=== PATIENT | male | born 1975 | race Caucasian/White ===

== ENCOUNTER 2018-01-19 01:39 | Emergency (ER) | END 2018-01-19 03:19 | disposition left against medical advice (07) ==

== ENCOUNTER 2018-01-24 00:41 | Emergency (ER) | END 2018-01-24 06:53 | disposition left against medical advice (07) ==

== ENCOUNTER 2018-03-22 22:58 | Emergency (ER) | END 2018-03-22 23:19 | disposition left against medical advice (07) ==

== ENCOUNTER 2018-04-13 17:35 | Emergency (ER) | END 2018-04-13 20:00 | disposition left against medical advice (07) ==

== ENCOUNTER 2018-07-12 02:27 | Emergency (ER) | payer OTHER ==
[~2018-07-12] VITALS: Ht 160 cm; Wt 118.2 kg
[2018-07-12 02:33] VITALS: BP 139/88; PULSE 78; RESP 18; Ht 160 cm; Wt 118.2 kg
--- NOTE | 2018-07-12 03:34 | ERD ---
ER Documentation Chief Complaint Chief Complaint CAN ALFONSO,from home,chest pressure pain radiating to L arm,resolved per pt HPI This is a 43-year-old male with a past medical history of hypertension, obesity, daily tobacco use, coronary artery disease status post CABG who is presenting with a transient episode of mid substernal nonexertional pressure-like moderate chest pain radiating into the left arm. It was not associated with lighthead edness or dizziness or shortness of breath or nausea or vomiting or diaphoresis. An ambulance was called. The patient was given aspirin and nitro prior to arrival with complete resolution of his pain. Now that the patient's pain is resolved, he would like to leave. The patient denies feeling sick recently. The patient denies fever or chills. The patient has had no headache or vision changes. The patient does not endorse neck or back pain. The patient denies abdominal pain. The patient denies changes to bowel movements or urination. The patient has had no focal deficits. The patient has had no weakness or numbness or tingling to the face or extremities. ROS All systems reviewed and are negative except as per history of present illness. Allergies Allergies: Coded Allergies: No Known Allergy (Unverified , 01/24/18) PMhx/Soc History of Surgery: Yes (CABG 10 years ago) Anesthesia Reaction: No Hx Neurological Disorder: No Hx Respiratory Disorders: No Hx Cardiac Disorders: Yes (HTN) Hx Psychiatric Problems: No Hx Miscellaneous Medical Probl: Yes (MORBID OBESITY) Hx Alcohol Use: No Hx Substance Use: No Hx Tobacco Use: Yes (more than 1 ppd) FmHx Family History: No diabetes Physical Exam Vitals Vital Signs Date Temp Pulse Resp B/P (MAP) Pulse Ox O2 O2 Flow FiO2 Time Delivery Rate 07/12/18 98.2 78 18 139/88 97 02:33 (105) Physical Exam Const: No apparent distress, well-developed, well-nourished Head: Normocephalic, Atraumatic Eyes: Normal Conjunctiva. Extraocular movements intact. Pupils equal, round and reactive to light ENT: Normal External Ears, Nose and Mouth. Neck: Full range of motion. No meningismus. Resp: Clear to auscultation bilaterally, No wheezes, rales or rhonchi Cardio: Regular rate and rhythm. No murmurs, rubs or gallops Abd: Soft, non tender, non distended. Normal bowel sounds Skin: No petechiae or rashes Back: No midline tenderness. No CVA tenderness Ext: No cyanosis, or edema Neur: Awake and alert, oriented 4. Cranial nerves intact. No facial droop. Normal strength, sensation and coordination. Psych: Normal Mood and Affect Procedures/MDM MDM The patient's presentation warrants further investigation. Previous medical records, if available, were reviewed. LABS CBC: Patient refused BMP: Patient refused Troponin: Patient refused BNP: Patient refused EKG EKG read by me: Rate/Rhythm: Regular rate and rhythm at a rate of 92 bpm Intervals: Normal. Incomplete right bundle branch block [place]: Normal Impression: No evidence of acute ischemia or arrhythmia IMAGING CXR Patient refused TREATMENT/DISPOSITION - AMA The patient presents for chest pain, relieved by nitro and aspirin. The patient has a significant cardiac history. While the patient's EKG is reassuring, I am very concerned about the patient given his resolution after receiving medication to treat a cardiac pathology. I recommended admission to the patient or at least completion of a cardiac workup, but he declined and preferred to leave because he has work in the morning. The risks and benefits of admission versus discharge were discussed with the patient. The patient is at risk of myocardial infarction, cardiac arrest, permanent disability and . The patient is alert and oriented and has capacity to refuse testing. He understands the risks and would like to leave AGAINST MEDICAL ADVICE. The patient understands that he may return to the emergency department at any time and we would be happy to reassess him. 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 Disclaimer: Inadvertent spelling and grammatical errors are likely due to EHR/dictation software use and do not reflect on the overall quality of patient care. Note that the electronic time recorded on this note does not necessarily reflect the actual time of the patient encounter. Departure Diagnosis: Primary Impression: Chest pain Chest pain type: unspecified Qualified Codes: R07.9 - Chest pain, unspecified Additional Impressions: Chest pressure Left against medical advice Condition: BRANDON Gomez MD Jul 12, 2018 03:34
== END 2018-07-12 03:20 | disposition left against medical advice (07) ==
LOC: E/R 02:27
DX: R07.89 Other chest pain (principal); E66.01 Morbid (severe) obesity due to excess calories; I10 Essential (primary) hypertension; I25.10 Atherosclerotic heart disease of native coronary artery without angina pectoris; F17.210 Nicotine dependence, cigarettes, uncomplicated; Z68.42 Body mass index [BMI] 45.0-49.9, adult; Z95.1 Presence of aortocoronary bypass graft
CPT/HCPCS: 71045; 93005; Z7502; Z7610

== ENCOUNTER 2018-08-25 13:39 | Emergency (ER) | payer OTHER ==
[~2018-08-25] VITALS: Ht 170.2 cm; Wt 113.6 kg
--- NOTE | 2018-08-25 13:43 | ERD ---
ER Documentation Chief Complaint Chief Complaint cp HPI The patient is a 43-year-old male, presenting to the ER because of substernal chest pressure while he was driving. lasted 4 min and went away by itself, had similar symptoms previously, denies any chest pressure right now. He has any chest pain with vomiting/radiation/exertion/diaphoresis, dyspnea, abdominal pain, vomiting, dizzy, diarrhea. He smokes, denies drinking or using illicit drug Past medical history: Hypertension, CAD Past surgical history: CABG ROS All systems reviewed and are negative except as per history of present illness. Allergies Allergies: Coded Allergies: No Known Allergy (Unverified , 01/24/18) PMhx/Soc History of Surgery: Yes (CABG 10 years ago) Anesthesia Reaction: No Hx Neurological Disorder: No Hx Respiratory Disorders: No Hx Cardiac Disorders: Yes (HTN) Hx Psychiatric Problems: No Hx Miscellaneous Medical Probl: Yes (MORBID OBESITY) Hx Alcohol Use: No Hx Substance Use: No Hx Tobacco Use: Yes (more than 1 ppd) Physical Exam Vitals Vital Signs Date Temp Pulse Resp B/P (MAP) Pulse Ox O2 O2 Flow FiO2 Time Delivery Rate 08/25/18 Nasal 2 13:53 Cannula 08/25/18 98.0 91 18 142/91 98 13:44 (108) Physical Exam Const: No acute distress. Head: Atraumatic. Eyes: Normal Conjunctiva. ENT: Normal External Ears, Nose and Mouth. Neck: Full range of motion. No meningismus. Resp: Clear to auscultation bilaterally. Cardio: Regular rate and rhythm. Abd: Soft, non distended, normal bowel sounds, non tender. Skin: No petechiae or rashes. Back: No midline or flank tenderness. Ext: No cyanosis, or edema. Neur: Awake and alert. No focal deficit Psych: Normal Mood and Affect. Result Diagram: 08/25/18 1358 08/25/18 1358 Results 24 hrs Laboratory Tests Test 08/25/18 13:58 White Blood Count 10.2 10^3/ul Red Blood Count 5.52 10^6/ul Hemoglobin 15.5 g/dl Hematocrit 48.1 % Mean Corpuscular Volume 87.1 fl Mean Corpuscular Hemoglobin 28.1 pg Mean Corpuscular Hemoglobin Concent 32.2 g/dl Red Cell Distribution Width 14.6 % Platelet Count 269 10^3/UL Mean Platelet Volume 9.1 fl Immature Granulocytes % 0.300 % Neutrophils % 61.3 % Lymphocytes % 29.4 % Monocytes % 5.1 % Eosinophils % 3.3 % Basophils % 0.6 % Nucleated Red Blood Cells % 0.0 /100WBC Immature Granulocytes # 0.030 10^3/ul Neutrophils # 6.3 10^3/ul Lymphocytes # 3.0 10^3/ul Monocytes # 0.5 10^3/ul Eosinophils # 0.3 10^3/ul Basophils # 0.1 10^3/ul Nucleated Red Blood Cells # 0.0 10^3/ul Sodium Level 140 mmol/L Potassium Level 4.5 mmol/L Chloride Level 108 mmol/L Carbon Dioxide Level 20 mmol/L Anion Gap 12 Blood Urea Nitrogen 24 mg/dl Creatinine 0.81 mg/dl Est Glomerular Filtrat Rate mL/min > 60 mL/min Glucose Level 214 mg/dl Calcium Level 9.4 mg/dl Troponin I < 0.012 ng/ml Procedures/[place] [address] Radiology Main Line: [phone] DIAGNOSTIC IMAGING REPORT Patient: TORIE DEJESUS : 1975 Age: 43 Sex: M MR #: [id number] DOS: 08/25/18 1351 Ordering MD: JAYSON ZHANG MD Location: E/R Room/Bed: PROCEDURE: XR Chest. CLINICAL INDICATION: shortness of breath TECHNIQUE: Single portable view of the chest was obtained COMPARISON: 04/13/2018, 07/12/2018 FINDINGS: There is mild cardiomegaly. The patient is status post sternotomy. There is mild pulmonary vascular congestion. There are bilateral perihilar and lower lobe increased interstitial changes. There is no pleural effusion.. There is no pneumothorax. RPTAT: AA IMPRESSION: Mild cardiomegaly with pulmonary vascular congestion. .Robi Jean MD, Date Time Electronically viewed and signed by .Robi Jean MD, on 08/25/2018 14:16 .S/ CC: JAYSON ZHANG MD [phone] EKG: Read by emergency physician Rate/Rhythm: Normal Sinus Rhythm 91 beats/min QRS, ST, T-waves: No ST elevation, no T inversion, LAD, anterolateral ST and T abnormality Impression: Abnormal EKG MEDICAL MAKING DECISION: The patient is a 43-year-old male with multiple cardiac risk factor, presenting with acute chest pain concerning for acute ACS. he left the hospital prior to the availability of the results AMA The differential diagnoses considered include but are not limited to acute coronary syndrome, acute myocardial infarction, pericarditis, pulmonary embolism, aortic dissection, pneumonia, pleural effusion, pneumothorax, GERD, chest wall pain. Departure Diagnosis: Primary Impression: Chest pain Condition: Stable (AMA) Comments The patient signed out AGAINST MEDICAL ADVICE. Risks, benefits, alternatives were explained to the patient. Risks include but not limited to and permanent disability Disclaimer: Inadvertent spelling and grammatical errors are likely due to EHR/dictation software use and do not reflect on the overall quality of patient care. Also, please note that the electronic time recorded on this note does not necessarily reflect the actual time of the patient encounter. JAYSON ZHANG MD Aug 25, 2018 13:43
[2018-08-25 13:44] VITALS: BP 142/91; PULSE 91; RESP 18; Ht 170.2 cm; Wt 113.6 kg
== END 2018-08-25 15:06 | disposition left against medical advice (07) ==
LOC: E/R 13:39
DX: R07.2 Precordial pain (principal); E66.01 Morbid (severe) obesity due to excess calories; I10 Essential (primary) hypertension; I25.10 Atherosclerotic heart disease of native coronary artery without angina pectoris; Z87.891 Personal history of nicotine dependence; Z95.1 Presence of aortocoronary bypass graft
CPT/HCPCS: 36415; 71045; 80048; 84484; 85025; 93005; Z7502

== ENCOUNTER 2018-11-20 03:01 | Emergency (ER) | payer OTHER ==
[~2018-11-20] VITALS: Ht 172.7 cm; Wt 122.3 kg
[2018-11-20 03:09] VITALS: Ht 172.7 cm; Wt 122.3 kg
--- NOTE | 2018-11-20 03:09 | ERD ---
ER Documentation Chief Complaint Chief Complaint HPI Is a 43-year-old male who presents for evaluation of chest pain. Patient report s that he has a prior history of NV, he is status post CABG, he woke up this morning with chest pain. He denies fever, he takes nitroglycerin at home, is now improved after nitroglycerin. He denies exertional shortness of breath. ROS All systems reviewed and are negative except as per history of present illness. Allergies Allergies: Coded Allergies: No Known Allergy (Unverified , 01/24/18) PMhx/Soc History of Surgery: Yes (CABG 10 years ago) Anesthesia Reaction: No Hx Neurological Disorder: No Hx Respiratory Disorders: No Hx Cardiac Disorders: Yes (HTN) Hx Psychiatric Problems: No Hx Miscellaneous Medical Probl: Yes (MORBID OBESITY) Hx Alcohol Use: No Hx Substance Use: No Hx Tobacco Use: Yes (more than 1 ppd) Physical Exam Vitals Vital Signs Date Temp Pulse Resp B/P (MAP) Pulse Ox O2 O2 Flow FiO2 Time Delivery Rate 11/20/18 97.9 75 20 138/95 99 03:09 (109) Physical Exam Const: No acute distress Head: Atraumatic Eyes: Normal Conjunctiva ENT: Normal External Ears, Nose and Mouth. Neck: Full range of motion. No meningismus. Resp: Clear to auscultation bilaterally Cardio: Regular rate and rhythm, no murmurs. Chest wall old well-healed scar. Abd: Soft, non tender, non distended. Normal bowel sounds Skin: No petechiae or rashes Back: No midline or flank tenderness Ext: No cyanosis, or edema Neur: Awake and alert Psych: Normal Mood and Affect Result Diagram: 11/20/18 0326 11/20/18 0326 Results 24 hrs Laboratory Tests Test 11/20/18 03:26 White Blood Count 14.7 10^3/ul Red Blood Count 5.01 10^6/ul Hemoglobin 14.0 g/dl Hematocrit 42.8 % Mean Corpuscular Volume 85.4 fl Mean Corpuscular Hemoglobin 27.9 pg Mean Corpuscular Hemoglobin Concent 32.7 g/dl Red Cell Distribution Width 14.3 % Platelet Count 289 10^3/UL Mean Platelet Volume 9.0 fl Immature Granulocytes % 0.300 % Neutrophils % 58.9 % Lymphocytes % 31.0 % Monocytes % 5.6 % Eosinophils % 3.7 % Basophils % 0.5 % Nucleated Red Blood Cells % 0.0 /100WBC Immature Granulocytes # 0.050 10^3/ul Neutrophils # 8.7 10^3/ul Lymphocytes # 4.6 10^3/ul Monocytes # 0.8 10^3/ul Eosinophils # 0.6 10^3/ul Basophils # 0.1 10^3/ul Nucleated Red Blood Cells # 0.0 10^3/ul Sodium Level 140 mmol/L Potassium Level 4.4 mmol/L Chloride Level 108 mmol/L Carbon Dioxide Level 22 mmol/L Anion Gap 10 Blood Urea Nitrogen 21 mg/dl Creatinine 0.64 mg/dl Est Glomerular Filtrat Rate mL/min > 60 mL/min Glucose Level 209 mg/dl Calcium Level 8.7 mg/dl Total Bilirubin 0.3 mg/dl Direct Bilirubin 0.00 mg/dl Indirect Bilirubin 0.3 mg/dl Aspartate Amino Transf (AST/SGOT) 20 IU/L Alanine Aminotransferase (ALT/SGPT) 20 IU/L Alkaline Phosphatase 63 IU/L Troponin I < 0.012 ng/ml Total Protein 7.1 g/dl Albumin 3.8 g/dl Globulin 3.30 g/dl Albumin/Globulin Ratio 1.15 Procedures/MDM Is a 43-year-old male transfer of her chest pain. Primary consideration for acute coronary syndrome given his strong risk factors, there was no evidence of ST elevation NV, will plan for cardiac work-up, I have much lower suspicion for aortic dissection or pulmonary embolism. EKG: Rate/Rhythm: Normal Sinus Rhythm QRS, ST, T-waves: There are minimal ST depressions noted in V2 and V3 Impression: No evidence of ischemia or arrhythmia Chest X-ray 1V Interpreted by me: Soft Tissue: No acute abnormalities Bones: No acute abnormalities Mediastinum/Cardiac Silhouette/Lungs: No acute abnormalities 4:20 AM. Patient's first troponin returned negative, he is currently chest pain-free. He is patient is high risk for acute coronary syndrome, and I discussed this in detail with the patient, he stated that he felt better, and wished to be discharged home. Explained to him that I could not completely rule out acute coronary syndrome, with a single troponin, and I felt that the best and safest course would be to the patient to be admitted, for a full cardiac rule out. Patient was very adamant that he did not want to be admitted, and wished to be discharged. He accepted leaving AGAINST MEDICAL ADVICE. The patient has made the decision to leave this Emergency Department and any ongoing care against the advice of the emergency physician. The patient has been informed of and verbalized understanding of the inherent risks of this decision, including , disability and [worsening of his condition]. 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 The patient was given alt ernative therapeutic options including outpatient follow-up. The patient has the capacity to make this decision and accepts the responsibility of leaving at this time. The patient and all necessary parties have been advised that the patient may return at any time for further evaluation or treatment. The patient's condition at time of discharge is [stable. I encouraged him to return, at any time should he change his mind and wish to be admitted, and to return immediately if he has any recurrent symptoms. Departure Diagnosis: Primary Impression: Chest pain Chest pain type: unspecified Qualified Codes: R07.9 - Chest pain, unspecified Condition: Stable EDWIN WORKMAN MD Nov 20, 2018 03:09
[2018-11-20 04:38] VITALS: BP 123/82; PULSE 78; RESP 16
[2018-11-20] MEDS ORDERED: CLOP75TA28 PO (04:39)
[2018-11-20] MEDS ORDERED: METO-319 PO (04:39)
[2018-11-20] MEDS ORDERED: ATOR40TA68 PO (04:39)
[2018-11-20] MEDS ORDERED: LISI40TA3 PO (04:39)
[2018-11-20] MEDS ORDERED: ASPI-817 PO (04:39)
== END 2018-11-20 04:35 | disposition left against medical advice (07) ==
LOC: E/R 03:01
DX: R07.9 Chest pain, unspecified (principal); I10 Essential (primary) hypertension; F17.210 Nicotine dependence, cigarettes, uncomplicated; E66.01 Morbid (severe) obesity due to excess calories; I25.2 Old myocardial infarction; R40.2142 Coma scale, eyes open, spontaneous, at arrival to emergency department; R40.2252 Coma scale, best verbal response, oriented, at arrival to emergency department; R40.2362 Coma scale, best motor response, obeys commands, at arrival to emergency department; Z95.1 Presence of aortocoronary bypass graft; Z68.41 Body mass index [BMI] 40.0-44.9, adult
CPT/HCPCS: 36415; 71045; 80053; 84484; 85025; 93005; Z7502

== ENCOUNTER 2018-12-24 21:04 | Emergency (ER) | payer OTHER ==
[~2018-12-24] VITALS: Ht 165.1 cm; Wt 120.6 kg
[~2018-12-24 21:04] MED LIST: ASPI-817 PO; ATOR40TA68 PO; CLOP75TA28 PO; LISI40TA3 PO; METO-319 PO
[2018-12-24 21:09] VITALS: Ht 165.1 cm; Wt 120.6 kg
[2018-12-24] MEDS ORDERED: SOD CHLORIDE 0.9% 1,000 ML IV STA (22:23)
[2018-12-24] MEDS ORDERED: PIPER-TAZO 3.375 GM IV (PMX) 100 ML IVPB STA (22:23)
[2018-12-24] MEDS ORDERED: KETOROLAC 30 MG INJ IV STA (22:29)
[2018-12-24] MEDS ORDERED: IOHEXOL 300MG/ML 150 ML BTL ONE (23:43)
[2018-12-24] MEDS ORDERED: SOD CHLORIDE 0.9% 100 ML ONE (23:43)
[2018-12-25 01:00] VITALS: BP 122/86; PULSE 78; RESP 16
--- NOTE | 2018-12-25 01:57 | ERD ---
ER Documentation Chief Complaint Chief Complaint Pt reports L groin pain x 2 days HPI This a 43-year-old male reports left groin pain for 2 days. He said that it started as a pimple and then it started draining purulent liquid. Is now a surrounding ring of erythema and induration. No fevers or chills. ROS All systems reviewed and are negative except as per history of present illness. Medications Home Meds Reported Medications Metoprolol Succinate* (Toprol XL*) 50 Mg Tab.er.24h, 50 MG PO DAILY for 30 Days 11/20/18 Clopidogrel Bisulfate (Clopidogrel) 75 Mg Tablet, 75 MG PO QHS for 30 Days 11/20/18 Atorvastatin* (Atorvastatin*) 40 Mg Tablet, 40 MG PO QHS for 30 Days 11/20/18 Lisinopril* (Lisinopril*) 40 Mg Tablet, 40 MG PO DAILY for 30 Days 11/20/18 Aspirin* (Aspirin* EC) 81 Mg Tablet.dr, 81 MG PO DAILY for 30 Days 11/20/18 Allergies Allergies: Coded Allergies: No Known Allergy (Unverified , 11/20/18) PMhx/Soc History of Surgery: Yes (CABG 2008) Anesthesia Reaction: No Hx Neurological Disorder: No Hx Respiratory Disorders: No Hx Cardiac Disorders: Yes (HTN) Hx Psychiatric Problems: No Hx Miscellaneous Medical Probl: Yes (MORBID OBESITY) Hx Alcohol Use: No Hx Substance Use: No Hx Tobacco Use: Yes (more than 1 packed a day) Physical Exam Vitals Vital Signs Date Temp Pulse Resp B/P (MAP) Pulse Ox O2 O2 Flow FiO2 Time Delivery Rate 12/24/18 99.0 88 20 151/89 96 21:09 (109) Physical Exam Const: No acute distress Head: Atraumatic Eyes: Normal Conjunctiva ENT: Normal External Ears, Nose and Mouth. Neck: Full range of motion. No meningismus. Resp: Clear to auscultation bilaterally Cardio: Regular rate and rhythm, no murmurs Abd: Soft, non tender, non distended. Normal bowel sounds Skin: 8 x 8 area of induration and erythema with central puncture wound with purulent drainage in the left groin area Back: No midline or flank tenderness Ext: No cyanosis, or edema Neur: Awake and alert Psych: Normal Mood and Affect Result Diagram: 12/24/18215412/24/182154 Results 24 hrs Laboratory Tests Test 12/24/18 21:55 12/24/18 22:07 White Blood Count 14.5 10^3/ul Red Blood Count 5.21 10^6/ul Hemoglobin 15.0 g/dl Hematocrit 45.0 % Mean Corpuscular Volume 86.4 fl Mean Corpuscular Hemoglobin 28.8 pg Mean Corpuscular Hemoglobin Concent 33.3 g/dl Red Cell Distribution Width 14.4 % Platelet Count 315 10^3/UL Mean Platelet Volume 9.6 fl Immature Granulocytes % 0.400 % Neutrophils % 61.1 % Lymphocytes % 28.9 % Monocytes % 6.5 % Eosinophils % 2.5 % Basophils % 0.6 % Nucleated Red Blood Cells % 0.0 /100WBC Immature Granulocytes # 0.060 10^3/ul Neutrophils # 8.8 10^3/ul Lymphocytes # 4.2 10^3/ul Monocytes # 0.9 10^3/ul Eosinophils # 0.4 10^3/ul Basophils # 0.1 10^3/ul Nucleated Red Blood Cells # 0.0 10^3/ul Urine Color YELLOW Urine Clarity TURBID Urine pH 5.0 Urine Specific [place] 1.031 Urine Ketones NEGATIVE mg/dL Urine Nitrite NEGATIVE mg/dL Urine Bilirubin NEGATIVE mg/dL Urine Urobilinogen NEGATIVE mg/dL Urine Leukocyte Esterase NEGATIVE Ashley/ul Urine Microscopic RBC 5 /HPF Urine Microscopic WBC 2 /HPF Urine Amorphous Crystals MANY /HPF Urine Bacteria FEW /HPF Urine Mucus MANY /HPF Urine Hemoglobin 2+ mg/dL Urine Glucose NEGATIVE mg/dL Urine Total Protein 1+ mg/dl Sodium Level 139 mmol/L Potassium Level 4.1 mmol/L Chloride Level 106 mmol/L Carbon Dioxide Level 27 mmol/L Anion Gap 6 Blood Urea Nitrogen 18 mg/dl Creatinine 0.81 mg/dl Est Glomerular Filtrat Rate mL/min > 60 mL/min Glucose Level 121 mg/dl Calcium Level 9.7 mg/dl Total Bilirubin 0.5 mg/dl Direct Bilirubin 0.00 mg/dl Indirect Bilirubin 0.5 mg/dl Aspartate Amino Transf (AST/SGOT) 36 IU/L Alanine Aminotransferase (ALT/SGPT) 24 IU/L Alkaline Phosphatase 63 IU/L Total Protein 7.4 g/dl Albumin 3.9 g/dl Globulin 3.50 g/dl Albumin/Globulin Ratio 1.11 Lipase 85 U/L Bedside Urine pH (LAB) 5.5 Bedside Urine Protein (LAB) 1+ Bedside Urine Glucose (UA) Negative Bedside Urine Ketones (LAB) Trace Bedside Urine Blood 2+ Bedside Urine Nitrite (LAB) Negative Bedside Urine Leukocyte Esterase (L Negative Current Medications Medications Dose Sig/Mateus Start Time Status Last (Trade) Ordered Route PRN Stop Time Admin Dose Reason Admin Sodium 1,000 ml @ Q1H STAT 12/24/18 DC 12/24/18 Chloride 1,000 mls/hr IV 22:23 12/24/18 22:39 23:22 Piperacillin 100 ml @ ONCE STAT 12/24/18 DC 12/24/18 Sod/ 200 mls/hr IVPB 22:23 12/24/18 22:39 Tazobactam 22:52 Sod Ketorolac 30 mg ONCE STAT 12/24/18 DC 12/24/18 Tromethamine IV 22:29 12/24/18 22:39 (Toradol) 22:30 Sodium 100 ml @ ud STK-MED 12/24/18 DC Chloride ONCE .ROUTE 23:43 12/24/18 23:44 Iohexol 150 ml STK-MED 12/24/18 DC (Omnipaque ONCE .ROUTE 23:43 12/24/18 300mg/ ml) 23:44 Procedures/MDM Medical decision makin-year-old male with a groin abscess and surrounding cellulitis and needs admission for intravenous antibiotics. At this point the patient is decided to sign out AGAINST MEDICAL ADVICE. Upon signing out AMA, patient is alert and oriented x4 with goal oriented speech and good decision- making capacity. Departure Diagnosis: Primary Impression: Groin pain, lower left quadrant Condition: Stable JULIO LOYA Dec 25, 2018 01:57
== END 2018-12-25 01:26 | disposition left against medical advice (07) ==
LOC: E/R 21:04
DX: R10.32 Left lower quadrant pain (principal); E66.01 Morbid (severe) obesity due to excess calories; I10 Essential (primary) hypertension; F17.210 Nicotine dependence, cigarettes, uncomplicated; Z79.01 Long term (current) use of anticoagulants; Z68.41 Body mass index [BMI] 40.0-44.9, adult; Z95.1 Presence of aortocoronary bypass graft; Z79.82 Long term (current) use of aspirin
CPT/HCPCS: 36415; 80053; 81001; 83690; 85025; 87040; 96374; 96375; J1885; J2543; J7030; Q9967; Z7502; Z7610; 81003

== ENCOUNTER 2019-01-07 00:41 | Emergency (ER) | payer OTHER ==
[~2019-01-07] VITALS: Ht 170.2 cm; Wt 122.0 kg
[2019-01-07 00:51] VITALS: BP 132/58; PULSE 81; RESP 18; Ht 170.2 cm; Wt 122.0 kg
== END 2019-01-07 01:16 | disposition left against medical advice (07) ==
LOC: E/R 00:41
DX: I10 Essential (primary) hypertension (principal); F17.210 Nicotine dependence, cigarettes, uncomplicated; E66.01 Morbid (severe) obesity due to excess calories; Z68.41 Body mass index [BMI] 40.0-44.9, adult; Z79.01 Long term (current) use of anticoagulants; Z79.82 Long term (current) use of aspirin; Z95.1 Presence of aortocoronary bypass graft
CPT/HCPCS: 93005; Z7502